=== PATIENT | male | born 2000 | race Caucasian/White ===

== ENCOUNTER 2024-02-04 02:43 | Emergency (ER) | payer OTHER ==
[~2024-02-04] VITALS: Ht 167.6 cm; Wt 63.5 kg
[2024-02-04 02:56] VITALS: BP 125/59; PULSE 88; RESP 16; TEMP 97.6; O2SAT 99
[2024-02-04] MEDS: ACETAMINOPHEN EXTRA STRENGTH 500 MG TAB PO ONE (03:06)
== END 2024-02-04 03:43 | disposition left against medical advice (07) ==
LOC: MED 02:43
DX: S83.92XA Sprain of unspecified site of left knee, initial encounter (principal); M54.2 Cervicalgia; V43.52XA Car driver injured in collision with other type car in traffic accident, initial encounter; Y93.89 Activity, other specified; Y92.488 Other paved roadways as the place of occurrence of the external cause; Y99.8 Other external cause status
CPT/HCPCS: 99283